=== PATIENT | male | born 1940 | race Caucasian/White ===

== ENCOUNTER 2019-01-29 18:39 | Inpatient (IN) | payer MEDICARE, OTHER ==
[~2019-01-29] VITALS: Ht 167.6 cm; Wt 72.7 kg
[~2019-01-29 18:39] MED LIST: ASPI-817 PO; FURO20TA3 PO; HYDR-4011 PO
[2019-01-29] MEDS ORDERED: IOHEXOL 100 ML ONE (21:22)
[2019-01-29] MEDS ORDERED: SOD CHLORIDE 0.9% 100 ML ONE (21:22)
[2019-01-29] MEDS ORDERED: ENOXAPARIN 80 MG/0.8 ML SYG SC SCH (23:00)
[2019-01-29] MEDS ORDERED: ONDANSETRON 4 MG INJ IV PRN (23:30)
[2019-01-29] MEDS ORDERED: ACETAMINOPHEN 325 MG TAB PO PRN (23:30)
[2019-01-30] VITALS (20 sets, daily range): BP systolic 83–113; BP diastolic 52–62; PULSE 68–96; RESP 16–17; Ht 167.6 cm; Wt 72.7 kg
[2019-01-30] MEDS ORDERED: PENDING SANTYL ORDER FOR WOUND CARE XX PRN (07:30)
[2019-01-30] MEDS: PIPER-TAZO 2.25 GM (PMX) 50 ML IVPB SCH ×3 (10:18→22:09)
[2019-01-30] MEDS: APIXABAN 5 MG TABLET PO SCH ×2 (10:51→22:09)
[2019-01-30] MEDS ORDERED: NACL 0.9% 3 ML SYG IV SCH (11:30)
[2019-01-30] MEDS: FUROSEMIDE 20 MG TAB PO SCH ×2 (11:45→17:42)
[2019-01-30] MEDS: ALBUTEROL/IPRATROPIUM (NEB) 3 ML AMP HHN SCH ×3 (12:43→21:02)
[2019-01-30] MEDS: HYDROCODONE/APAP (5/325) TAB PO PRN (17:47)
[2019-01-31] VITALS (18 sets, daily range): BP systolic 97–166; BP diastolic 54–76; PULSE 51–99; RESP 17–20
[2019-01-31] MEDS: ALBUTEROL/IPRATROPIUM (NEB) 3 ML AMP HHN SCH ×6 (01:05→20:27)
[2019-01-31] MEDS: HYDROCODONE/APAP (5/325) TAB PO PRN ×2 (05:15→16:30)
[2019-01-31] MEDS: PIPER-TAZO 2.25 GM (PMX) 50 ML IVPB SCH ×3 (06:22→22:31)
[2019-01-31] MEDS: FUROSEMIDE 20 MG TAB PO SCH ×2 (06:24→17:49)
[2019-01-31] MEDS: APIXABAN 5 MG TABLET PO SCH ×2 (09:30→22:31)
[2019-02-01] VITALS (19 sets, daily range): BP systolic 105–122; BP diastolic 56–66; PULSE 82–115; RESP 18–21
[2019-02-01] MEDS: ALBUTEROL/IPRATROPIUM (NEB) 3 ML AMP HHN SCH ×6 (01:14→21:15)
[2019-02-01] MEDS: PIPER-TAZO 2.25 GM (PMX) 50 ML IVPB SCH ×3 (05:53→21:16)
[2019-02-01] MEDS: FUROSEMIDE 20 MG TAB PO SCH ×2 (05:54→17:13)
[2019-02-01] MEDS: APIXABAN 5 MG TABLET PO SCH ×2 (08:17→21:15)
[2019-02-01] MEDS: HYDROCODONE/APAP (5/325) TAB PO PRN (14:01)
[2019-02-02] VITALS (16 sets, daily range): BP systolic 111–119; BP diastolic 58–76; PULSE 87–125; RESP 18–20
[2019-02-02] MEDS: ALBUTEROL/IPRATROPIUM (NEB) 3 ML AMP HHN SCH ×6 (01:19→21:00)
[2019-02-02] MEDS: HYDROCODONE/APAP (5/325) TAB PO PRN ×2 (04:43→18:35)
[2019-02-02] MEDS: FUROSEMIDE 20 MG TAB PO SCH ×2 (06:22→18:07)
[2019-02-02] MEDS: PIPER-TAZO 2.25 GM (PMX) 50 ML IVPB SCH ×3 (06:23→21:28)
[2019-02-02] MEDS: APIXABAN 5 MG TABLET PO SCH ×2 (08:31→21:28)
[2019-02-02] MEDS ORDERED: METOPROLOL 5 MG INJ IV ONE (23:30)
[2019-02-03] VITALS (20 sets, daily range): BP systolic 95–107; BP diastolic 56–62; PULSE 95–118; RESP 18–20
[2019-02-03] MEDS: ALBUTEROL/IPRATROPIUM (NEB) 3 ML AMP HHN SCH ×6 (01:05→20:45)
[2019-02-03] MEDS: HYDROCODONE/APAP (5/325) TAB PO PRN ×3 (01:19→20:47)
[2019-02-03] MEDS: FUROSEMIDE 20 MG TAB PO SCH ×2 (07:00→17:47)
[2019-02-03] MEDS: PIPER-TAZO 2.25 GM (PMX) 50 ML IVPB SCH ×3 (07:01→21:48)
[2019-02-03] MEDS: APIXABAN 5 MG TABLET PO SCH ×2 (10:15→20:47)
[2019-02-03] MEDS ORDERED: METOPROLOL 5 MG INJ IV ONE (23:30)
[2019-02-04] VITALS (14 sets, daily range): BP systolic 102–119; BP diastolic 52–75; PULSE 98–112; RESP 18–25
[2019-02-04] MEDS ORDERED: SOD CHLORIDE 0.9% 500 ML IV ONE
[2019-02-04] MEDS: ALBUTEROL/IPRATROPIUM (NEB) 3 ML AMP HHN SCH ×6 (01:24→21:00)
[2019-02-04] MEDS: PIPER-TAZO 2.25 GM (PMX) 50 ML IVPB SCH ×3 (06:50→21:23)
[2019-02-04] MEDS: FUROSEMIDE 20 MG TAB PO SCH ×2 (06:50→18:09)
[2019-02-04] MEDS: APIXABAN 5 MG TABLET PO SCH ×2 (09:03→21:25)
[2019-02-04] MEDS: HYDROCODONE/APAP (5/325) TAB PO PRN ×2 (09:03→23:25)
[2019-02-05] VITALS (16 sets, daily range): BP systolic 99–107; BP diastolic 58–68; PULSE 89–118; RESP 18–19
[2019-02-05] MEDS: ALBUTEROL/IPRATROPIUM (NEB) 3 ML AMP HHN SCH ×6 (01:00→19:55)
[2019-02-05] MEDS: FUROSEMIDE 20 MG TAB PO SCH ×2 (05:45→17:55)
[2019-02-05] MEDS: PIPER-TAZO 2.25 GM (PMX) 50 ML IVPB SCH ×3 (05:50→21:58)
[2019-02-05] MEDS: APIXABAN 5 MG TABLET PO SCH ×2 (07:50→21:58)
[2019-02-06] VITALS (10 sets, daily range): BP systolic 92–110; BP diastolic 54–62; PULSE 85–102; RESP 19–20
[2019-02-06] MEDS: ALBUTEROL/IPRATROPIUM (NEB) 3 ML AMP HHN SCH ×4 (00:44→12:00)
[2019-02-06] MEDS: PIPER-TAZO 2.25 GM (PMX) 50 ML IVPB SCH (05:36)
[2019-02-06] MEDS: FUROSEMIDE 20 MG TAB PO SCH (05:50)
[2019-02-06] MEDS: APIXABAN 5 MG TABLET PO SCH (08:43)
== END 2019-02-06 13:15 | disposition hospice, inpatient (51) | DRG 175 ==
LOC: E/R 18:39 → TEL 23:03
PROVIDERS: ADMIT Internal Medicine; ATTEND Hospitalist
DX: I26.99 Other pulmonary embolism without acute cor pulmonale (principal); J18.9 Pneumonia, unspecified organism; J96.20 Acute and chronic respiratory failure, unspecified whether with hypoxia or hypercapnia; C78.00 Secondary malignant neoplasm of unspecified lung; C64.9 Malignant neoplasm of unspecified kidney, except renal pelvis; I12.9 Hypertensive chronic kidney disease with stage 1 through stage 4 chronic kidney disease, or unspecified chronic kidney disease; N18.3 Chronic kidney disease, stage 3 (moderate); Z66 Do not resuscitate
CPT/HCPCS: 36600; 71045; 71275; 80048; 80053; 82803; 83036; 83605; 83735; 83880; 84100; 84484; 85025; 93005; 94640; 94660; 94664; 96372; J2543; J7040; Q9967